=== PATIENT | female | born 2000 | race Caucasian/White ===

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

== ENCOUNTER 2020-10-01 15:18 | Emergency (ER) | payer BC ==
[~2020-10-01] VITALS: Ht 154.9 cm; Wt 72.6 kg
--- NOTE | 2020-10-01 15:35 | NUR ---
THE PATIENT SELF PRESENTED TO ER FOR RLQ ABDOMINAL PAIN X TODAY. +N/V. THE PATIENT IN ROOM AIR AND DENIES SOB. RESPIRATION REGULAR AND UNLABORED. THE PATIENT IS PLACED ON A MONITOR. WILL CONTINUE TO MONITOR.
[2020-10-01 15:55] LABS: BASOPHILS % (AUTO) 0.5 % (0.0-2.0); EOSINOPHILS % (AUTO) 1.1 % (0.0-6.0); HEMATOCRIT 40 % (33-45); HEMOGLOBIN 13.4 g/dL (11.5-14.8); LYMPHOCYTES # (AUTO) 1.9 /CMM (0.8-4.8); LYMPHOCYTES % (AUTO) 24.4 % (20.0-44.0); MEAN CORPUSCULAR HGB CONC 33 g/dl (31.0-36.0); MEAN CORPUSCULAR VOLUME 82 fL (82-100); MONOCYTES # (AUTO) 0.6 /CMM (0.1-1.30); MONOCYTES % (AUTO) 7.7 % (2.0-12.0); NEUTROPHILS % (AUTO) 66.3 % (43.0-81.0); PLATELET COUNT (AUTO) 226 /CMM (150-450); RED BLOOD CELL COUNT(AUTO) 4.89 MIL/uL (4.0-5.2); WHITE BLOOD COUNT (AUTO) 7.6 K/uL (4.3-11.0)
[2020-10-01 15:55] LABS: BILIRUBIN,URINE NEGATIVE (NEGATIVE); COLOR,URINE YELLOW (YELLOW); LEUKOCYTE ESTERASE ,URINE NEGATIVE (NEGATIVE); NITRITE, URINE NEGATIVE (NEGATIVE); PH,URINE 5.5 (5.0-8.0); PROTEIN,URINE NEGATIVE (NEGATIVE); UGLUCOSE NEGATIVE (NEGATIVE); UROBILINOGEN,URINE 0.2 EU/dL (0.2)
[2020-10-01 16:00] LABS: CALCIUM, SERUM 9.3 mg/dL (8.5-10.1); CREATININE 0.7 mg/dL (0.6-1.3); POTASSIUM 3.7 mmol/L (3.5-5.1)
[2020-10-01 16:06] LABS: ALBUMIN 3.9 g/dL (3.4-5.0); BILIRUBIN,DIRECT 0.1 mg/dL (0.0-0.2); BILIRUBIN,TOTAL 0.4 mg/dL (0.2-1.0); TOTAL PROTEIN, SERUM 7.1 g/dL (6.4-8.2)
[2020-10-01 16:18] LABS: BACTERIA,URINE 2+ /HPF (None Seen)
[2020-10-01] MEDS ORDERED: CEPHALEXIN MONOHYDRATE 500 MG CAPSULE PO ONE (17:54)
[2020-10-01] MEDS: CEPHALEXIN MONOHYDRATE 500 MG CAPSULE PO ONE (17:56)
[2020-10-01] MEDS ORDERED: CEPH500T PO (17:56)
[2020-10-01] MEDS ORDERED: IBUP-1955 PO (17:56)
--- NOTE | 2020-10-01 18:05 | NUR ---
Patient AAO x4. Patient discharged to home in stable condition. Written and verbal after care instructions given. Patient verbalizes understanding of instruction. Patient left the hospital with her mother.
[2020-10-01 18:06] VITALS: BP 105/63
== END 2020-10-01 18:07 | disposition home or self-care (01) ==
LOC: ER 15:23
DX: R10.31 Right lower quadrant pain (principal); R82.81 Pyuria; R11.10 Vomiting, unspecified
CPT/HCPCS: 36415; 76856-TC; 80048-TC; 80076-TC; 81001; 83690-TC; 84703-TC; 85025-TC; 87086-TC

== ENCOUNTER 2020-12-06 | Emergency (ER) | payer BC ==
[~2020-12-06] VITALS: Ht 154.9 cm; Wt 71.7 kg
[~2020-12-06] MED LIST: CEPH500T PO; IBUP-1955 PO
--- NOTE | 2020-12-06 00:08 | NUR ---
PT AAOX4. AMBULATORY WITH STEADY GAIT. 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 PER PT "I WAS TOLD TO VISIT AN ER IF I COUGHED UP BLOOD." AWAITING ER MD FOR EVAL.
[2020-12-06 00:13] VITALS: BP 115/90
--- NOTE | 2020-12-06 01:11 | NUR ---
Patient discharged to home in stable condition. Written and verbal after care instructions given. Patient verbalizes understanding of instruction.
== END 2020-12-06 01:12 | disposition home or self-care (01) ==
LOC: ER 00:03
DX: J95.830 Postprocedural hemorrhage of a respiratory system organ or structure following a respiratory system procedure (principal); J45.909 Unspecified asthma, uncomplicated

== ENCOUNTER 2024-04-17 22:34 | Emergency (ER) | payer BC, MEDICAID ==
[~2024-04-17] VITALS: Ht 154.9 cm; Wt 72.6 kg
[2024-04-18 00:45] VITALS: BP 103/70; TEMP 98.5; O2SAT 99
[2024-04-18 01:02] LABS: APPEARANCE,URINE CLOUDY (CLEAR); BILIRUBIN,URINE NEGATIVE (NEGATIVE); BLOOD, URINE 3+ Ery/uL (NEGATIVE); COLOR,URINE DARK YELLOW (YELLOW); KETONES,URINE NEGATIVE (NEGATIVE); LEUKOCYTE ESTERASE ,URINE 1+ (NEGATIVE); NITRITE, URINE POSITIVE (NEGATIVE); PROTEIN,URINE 2+ mg/dl (NEGATIVE); UGLUCOSE NEGATIVE (NEGATIVE); UROBILINOGEN,URINE 0.2 EU/dL (0.2)
[2024-04-18 01:05] LABS: PREGNANCY TEST URINE QUAL NEGATIVE (NEGATIVE)
[2024-04-18 01:07] LABS: ADD URINE CULTURE YES; BACTERIA,URINE Few /HPF (None Seen); RBC,URINE 21-50 /HPF (0-2); SQUAMOUS EPITHELIAL CELL,UR Rare /HPF (None Seen); WBC,URINE 51-80 /HPF (0-3)
[2024-04-18] MEDS ORDERED: PHEN-704 PO (01:18)
[2024-04-18] MEDS ORDERED: NITR100C6 PO (01:18)
[2024-04-18] MEDS ORDERED: NITROFURANTOIN/MONOHYDRATE MACROCRYSTALS 100 MG CAPSULE ONE (01:20)
[2024-04-18] MEDS ORDERED: PHENAZOPYRIDINE HCL 200 MG TABLET ONE (01:20)
[2024-04-18] MEDS: NITROFURANTOIN/MONOHYDRATE MACROCRYSTALS 100 MG CAPSULE PO ONE (01:29)
[2024-04-18] MEDS: PHENAZOPYRIDINE HCL 200 MG TABLET PO ONE (01:29)
== END 2024-04-18 01:33 | disposition home or self-care (01) ==
LOC: ER 22:36
DX: N39.0 Urinary tract infection, site not specified (principal); R30.0 Dysuria; R31.9 Hematuria, unspecified; J45.909 Unspecified asthma, uncomplicated; Z90.89 Acquired absence of other organs
CPT/HCPCS: 81001; 84703-TC; 87086-TC